=== PATIENT | female | born 1955 | race Caucasian/White ===

== ENCOUNTER 2017-02-22 19:17 | Emergency (ER) | payer OTHER ==
[~2017-02-22] VITALS: Ht 165.1 cm; Wt 57.4 kg
[~2017-02-22 19:17] MED LIST: ALEVE220 M2 PO; CIPRO500 MG PO; FLAGYL500 MG PO; HYDROCODON-ACE1 EAC7 PO; LISINOPRIL10 MG PO; NOHOMEMEDS; PRINIVIL10 MG PO; ZOFRAN ODT4 MG PO
[2017-02-22] MEDS ORDERED: ERYTHROMYCIN O3.5 GM BOTH EYES (23:28)
[2017-02-22] MEDS ORDERED: ROPINIROLE HCL0.5 MG PO (23:42)
[2017-02-23 00:09] VITALS: BP 148/83
== END 2017-02-23 00:11 | disposition home or self-care (01) ==
LOC: EME 19:17
DX: H57.04 Mydriasis (principal); H57.13 Ocular pain, bilateral; R09.89 Other specified symptoms and signs involving the circulatory and respiratory systems; I10 Essential (primary) hypertension; Z87.891 Personal history of nicotine dependence
CPT/HCPCS: 99281; 99284

== ENCOUNTER 2017-08-10 01:34 | Inpatient (IN) | payer OTHER ==
[~2017-08-10] VITALS: Ht 165.1 cm; Wt 57.3 kg
[~2017-08-10 01:34] MED LIST changes: +ERYTHROMYCIN O3.5 GM BOTH EYES; +ROPINIROLE HCL0.5 MG PO
[2017-08-10 02:07] LABS: HEMATOCRIT 43.7 % (36.0-46.0); MCH 29.7 PG (29.0-34.0); MCHC 33.9 G/DL (30.0-36.0); MCV 87.8 FL (83-99); MEAN PLAT.VOLUME 8.8 uM^3 (9.5-12.4); PLATELET COUNT 414 K/uL (156-360); RBC DIS.WIDTH-CV 12.1 % (11.8-14.6); RBC DIS.WIDTH-SD 39.1 % (39-53); RED BLOOD COUNT 4.98 M/uL (3.80-5.20); WHITE BLOOD COUNT 19.3 K/uL (4.1-10.2)
[2017-08-10 02:16] LABS: CHLORIDE 103 mEq/L (99-109); POTASSIUM 3.1 mEq/L (3.7-5.4); SODIUM 142 mEq/L (136-147)
[2017-08-10 02:18] LABS: GLUCOSE 173 mg/dL (70-99)
[2017-08-10 02:20] LABS: ANION GAP 17 MEQ/L (2-14); TOTAL BILIRUBIN 0.4 mg/dL (0.0-1.0)
[2017-08-10 02:22] LABS: ALKALINE PHOSPHATASE 114 IU/L (3-129); GFR ESTIMATE (CALCULATED) > 59 mL/min/
[2017-08-10 02:23] LABS: UREA NITROGEN (BUN) 16 mg/dL (9-23)
[2017-08-10 02:25] LABS: LIPASE 20 U/L (1.0-51.0)
[2017-08-10 04:04] LABS: ADD MIUA? YES; BILIRUBIN NEGATIVE; BLOOD MODERATE; COLOR STRAW ((YELLOW)); GLUCOSE (STRIP) 50; KETONES NEGATIVE; LEUKOCYTES NEGATIVE; NITRITE NEGATIVE; PROTEIN (STRIP) NEGATIVE; SPECIFIC GRAVITY 1.019 (1.000-1.030); UROBILINOGEN 0.2 MG/DL (0.2-1.0)
[2017-08-10 04:09] LABS: BACTERIA NONE SEEN /HPF; EPITHELIAL CELLS NONE SEEN /HPF; MUCUS TRACE /LPF; UCUL ADDED? NO; WHITE BLOOD CELLS 0-5 /HPF (0-5)
[2017-08-10 11:06] LABS: ANION GAP 13 MEQ/L (2-14); CHLORIDE 112 MEQ/L (99-109); GFR ESTIMATE (CALCULATED) > 59 mL/min/; GLUCOSE 175 mg/dL (70-99); POTASSIUM 3.8 MEQ/L (3.7-5.4); SAMPLE HEMOLYSIS CHECK 2; SAMPLE ICTERIC CHECK 0; SAMPLE LIPEMIA CHECK 0; SODIUM 143 MEQ/L (136-147); UREA NITROGEN (BUN) 14 mg/dL (9-23)
[2017-08-10 11:15] VITALS: BP 118/75
[2017-08-10 13:19] LABS: HEMATOCRIT 45.8 % (36.0-46.0); MCH 29.8 PG (29.0-34.0); MCV 90.5 FL (83-99); MEAN PLAT.VOLUME 8.6 uM^3 (9.5-12.4); PLATELET COUNT 388 K/uL (156-360); RBC DIS.WIDTH-CV 12.6 % (11.8-14.6); RED BLOOD COUNT 5.06 M/uL (3.80-5.20); WHITE BLOOD COUNT 5.7 K/uL (4.1-10.2)
[2017-08-10 15:30] VITALS: BP 122/72
[2017-08-10 21:19] VITALS: BP 108/63
[2017-08-10 23:19] VITALS: BP 114/59
[2017-08-11 03:51] VITALS: BP 136/66
[2017-08-11 05:54] LABS: HEMATOCRIT 41.8 % (36.0-46.0); MCH 30.7 PG (29.0-34.0); MCHC 33.3 G/DL (30.0-36.0); MCV 92.3 FL (83-99); MEAN PLAT.VOLUME 9.1 uM^3 (9.5-12.4); PLATELET COUNT 341 K/uL (156-360); RBC DIS.WIDTH-CV 13.3 % (11.8-14.6); RBC DIS.WIDTH-SD 45.7 % (39-53); RED BLOOD COUNT 4.53 M/uL (3.80-5.20); WHITE BLOOD COUNT 22.4 K/uL (4.1-10.2)
[2017-08-11 07:26] LABS: ANION GAP 11 MEQ/L (2-14); CHLORIDE 108 MEQ/L (99-109); GFR ESTIMATE (CALCULATED) > 59 mL/min/; MAGNESIUM 1.9 mg/dl (1.3-2.7); POTASSIUM 4.1 MEQ/L (3.7-5.4); SAMPLE HEMOLYSIS CHECK 0; SAMPLE ICTERIC CHECK 0; SAMPLE LIPEMIA CHECK 0; SODIUM 141 MEQ/L (136-147)
[2017-08-11 07:28] LABS: GLUCOSE 102 mg/dL (70-99); UREA NITROGEN (BUN) 26 mg/dL (9-23)
[2017-08-11 08:04] VITALS: BP 124/60
[2017-08-11 12:00] VITALS: BP 117/62
[2017-08-11 15:54] VITALS: BP 113/58
[2017-08-11] MEDS ORDERED: ELAVIL50 MG PO (16:26)
[2017-08-11] MEDS ORDERED: TUMS500 MG PO (16:26)
[2017-08-11 21:39] VITALS: BP 127/66
[2017-08-12] VITALS (8 sets, daily range): BP systolic 99–157; BP diastolic 56–82
[2017-08-12 06:02] LABS: ANION GAP 7 MEQ/L (2-14); CHLORIDE 107 MEQ/L (99-109); GFR ESTIMATE (CALCULATED) > 59 mL/min/; GLUCOSE 87 mg/dL (70-99); POTASSIUM 3.7 MEQ/L (3.7-5.4); SAMPLE HEMOLYSIS CHECK 0; SAMPLE ICTERIC CHECK 0; SAMPLE LIPEMIA CHECK 0; SODIUM 140 MEQ/L (136-147); UREA NITROGEN (BUN) 17 mg/dL (9-23)
[2017-08-12 06:34] LABS: HEMATOCRIT 30.7 % (36.0-46.0); MCH 29.6 PG (29.0-34.0); MCHC 32.6 G/DL (30.0-36.0); MCV 90.8 FL (83-99); MEAN PLAT.VOLUME 8.7 uM^3 (9.5-12.4); PLATELET COUNT 254 K/uL (156-360); RBC DIS.WIDTH-CV 13.2 % (11.8-14.6); RBC DIS.WIDTH-SD 43.8 % (39-53); WHITE BLOOD COUNT 12.3 K/uL (4.1-10.2)
[2017-08-12 06:40] LABS: RED BLOOD COUNT 3.38 M/uL (3.80-5.20)
[2017-08-13 04:00] VITALS: BP 110/78
[2017-08-13 05:14] LABS: HEMATOCRIT 32.1 % (36.0-46.0); MCH 31.1 PG (29.0-34.0); MCHC 34.6 G/DL (30.0-36.0); MCV 89.9 FL (83-99); MEAN PLAT.VOLUME 8.8 uM^3 (9.5-12.4); PLATELET COUNT 266 K/uL (156-360); RBC DIS.WIDTH-CV 12.8 % (11.8-14.6); RBC DIS.WIDTH-SD 42.2 % (39-53); RED BLOOD COUNT 3.57 M/uL (3.80-5.20)
[2017-08-13 05:58] LABS: ANION GAP 14 MEQ/L (2-14); CHLORIDE 103 MEQ/L (99-109); GFR ESTIMATE (CALCULATED) > 59 mL/min/; GLUCOSE 85 mg/dL (70-99); POTASSIUM 2.9 MEQ/L (3.7-5.4); SAMPLE HEMOLYSIS CHECK 0; SAMPLE ICTERIC CHECK 0; SAMPLE LIPEMIA CHECK 0; SODIUM 140 MEQ/L (136-147); UREA NITROGEN (BUN) 8 mg/dL (9-23)
[2017-08-13 11:02] VITALS: BP 167/83
[2017-08-13 15:04] VITALS: BP 173/88
[2017-08-13 19:50] VITALS: BP 159/77
[2017-08-14 00:05] VITALS: BP 146/72
[2017-08-14 05:42] VITALS: BP 136/72
[2017-08-14 08:15] VITALS: BP 150/83
[2017-08-14 10:44] LABS: HEMATOCRIT 32.3 % (36.0-46.0); MCH 29.5 PG (29.0-34.0); MCHC 33.4 G/DL (30.0-36.0); MCV 88.3 FL (83-99); MEAN PLAT.VOLUME 8.5 uM^3 (9.5-12.4); PLATELET COUNT 281 K/uL (156-360); RBC DIS.WIDTH-CV 12.5 % (11.8-14.6); RBC DIS.WIDTH-SD 40.7 % (39-53); RED BLOOD COUNT 3.66 M/uL (3.80-5.20); WHITE BLOOD COUNT 11.7 K/uL (4.1-10.2)
[2017-08-14 11:06] LABS: ANION GAP 14 MEQ/L (2-14); CHLORIDE 102 MEQ/L (99-109); GFR ESTIMATE (CALCULATED) > 59 mL/min/; GLUCOSE 79 mg/dL (70-99); POTASSIUM 2.8 MEQ/L (3.7-5.4); SAMPLE HEMOLYSIS CHECK 0; SAMPLE ICTERIC CHECK 0; SAMPLE LIPEMIA CHECK 0; SODIUM 138 MEQ/L (136-147); UREA NITROGEN (BUN) 7 mg/dL (9-23)
[2017-08-14 11:15] VITALS: BP 167/88
[2017-08-14 15:30] VITALS: BP 175/81
[2017-08-14 18:55] VITALS: BP 169/83
[2017-08-14 22:02] LABS: ANION GAP 13 MEQ/L (2-14); CHLORIDE 103 MEQ/L (99-109); GFR ESTIMATE (CALCULATED) > 59 mL/min/; POTASSIUM 2.9 MEQ/L (3.7-5.4); SAMPLE HEMOLYSIS CHECK 0; SAMPLE ICTERIC CHECK 0; SAMPLE LIPEMIA CHECK 0; SODIUM 137 MEQ/L (136-147); UREA NITROGEN (BUN) 6 mg/dL (9-23)
[2017-08-14 22:06] LABS: GLUCOSE 115 mg/dL (70-99)
[2017-08-15] VITALS (7 sets, daily range): BP systolic 138–168; BP diastolic 74–93
[2017-08-15 05:14] LABS: MCH 30.1 PG (29.0-34.0); MEAN PLAT.VOLUME 8.5 uM^3 (9.5-12.4); PLATELET COUNT 258 K/uL (156-360); RBC DIS.WIDTH-CV 12.5 % (11.8-14.6); RBC DIS.WIDTH-SD 39.5 % (39-53); RED BLOOD COUNT 3.72 M/uL (3.80-5.20); WHITE BLOOD COUNT 10.8 K/uL (4.1-10.2)
[2017-08-15 05:38] LABS: ANION GAP 11 MEQ/L (2-14); CHLORIDE 102 MEQ/L (99-109); GFR ESTIMATE (CALCULATED) > 59 mL/min/; GLUCOSE 138 mg/dL (70-99); MAGNESIUM 1.9 mg/dl (1.3-2.7); SAMPLE HEMOLYSIS CHECK 0; SAMPLE ICTERIC CHECK 0; SAMPLE LIPEMIA CHECK 0; SODIUM 136 MEQ/L (136-147); UREA NITROGEN (BUN) 5 mg/dL (9-23)
[2017-08-16 04:40] VITALS: BP 131/71
[2017-08-16 07:46] VITALS: BP 156/70
[2017-08-16 09:06] LABS: HEMATOCRIT 32.2 % (36.0-46.0); MCH 29.5 PG (29.0-34.0); MCHC 34.2 G/DL (30.0-36.0); MCV 86.3 FL (83-99); MEAN PLAT.VOLUME 8.6 uM^3 (9.5-12.4); RBC DIS.WIDTH-CV 12.7 % (11.8-14.6); RBC DIS.WIDTH-SD 39.8 % (39-53); RED BLOOD COUNT 3.73 M/uL (3.80-5.20); WHITE BLOOD COUNT 15.1 K/uL (4.1-10.2)
[2017-08-16 09:22] LABS: ANION GAP 13 MEQ/L (2-14); CHLORIDE 104 MEQ/L (99-109); GFR ESTIMATE (CALCULATED) > 59 mL/min/; GLUCOSE 92 mg/dL (70-99); MAGNESIUM 1.7 mg/dl (1.3-2.7); SAMPLE HEMOLYSIS CHECK 0; SAMPLE ICTERIC CHECK 0; SAMPLE LIPEMIA CHECK 0; SODIUM 137 MEQ/L (136-147); UREA NITROGEN (BUN) 8 mg/dL (9-23)
[2017-08-16 09:23] LABS: POTASSIUM 3.8 MEQ/L (3.7-5.4)
[2017-08-16 09:34] LABS: PLATELET COUNT 341 K/uL (156-360)
[2017-08-16 12:00] VITALS: BP 150/71
[2017-08-16 17:46] VITALS: BP 137/65
[2017-08-16 19:45] VITALS: BP 140/72
[2017-08-16 23:00] VITALS: BP 132/80
[2017-08-17] VITALS (7 sets, daily range): BP systolic 101–125; BP diastolic 56–75
[2017-08-17 09:24] LABS: HEMATOCRIT 34.6 % (36.0-46.0); MCH 31.1 PG (29.0-34.0); MCV 88.9 FL (83-99); MEAN PLAT.VOLUME 8.7 uM^3 (9.5-12.4); PLATELET COUNT 406 K/uL (156-360); RBC DIS.WIDTH-CV 13.6 % (11.8-14.6); RBC DIS.WIDTH-SD 44.1 % (39-53); RED BLOOD COUNT 3.89 M/uL (3.80-5.20); WHITE BLOOD COUNT 25.3 K/uL (4.1-10.2)
[2017-08-17 09:56] LABS: ANION GAP 17 MEQ/L (2-14); CHLORIDE 103 MEQ/L (99-109); GFR ESTIMATE (CALCULATED) > 59 mL/min/; GLUCOSE 75 mg/dL (70-99); POTASSIUM 3.8 MEQ/L (3.7-5.4); SAMPLE HEMOLYSIS CHECK 0; SAMPLE ICTERIC CHECK 0; SAMPLE LIPEMIA CHECK 0; SODIUM 136 MEQ/L (136-147); UREA NITROGEN (BUN) 8 mg/dL (9-23)
[2017-08-17 18:30] LABS: HEMATOCRIT 29.4 % (36.0-46.0); MCH 29.9 PG (29.0-34.0); MCHC 33.3 G/DL (30.0-36.0); MCV 89.6 FL (83-99); MEAN PLAT.VOLUME 8.5 uM^3 (9.5-12.4); PLATELET COUNT 388 K/uL (156-360); RBC DIS.WIDTH-CV 13.7 % (11.8-14.6); RED BLOOD COUNT 3.28 M/uL (3.80-5.20); WHITE BLOOD COUNT 28.4 K/uL (4.1-10.2)
[2017-08-17 18:43] LABS: ANION GAP 15 MEQ/L (2-14); CHLORIDE 106 MEQ/L (99-109); GFR ESTIMATE (CALCULATED) > 59 mL/min/; POTASSIUM 3.8 MEQ/L (3.7-5.4); SAMPLE HEMOLYSIS CHECK 0; SAMPLE ICTERIC CHECK 0; SAMPLE LIPEMIA CHECK 0; SODIUM 135 MEQ/L (136-147); UREA NITROGEN (BUN) 10 mg/dL (9-23)
[2017-08-17 18:49] LABS: GLUCOSE 113 mg/dL (70-99)
[2017-08-17 22:35] LABS: ANION GAP 13 MEQ/L (2-14); CHLORIDE 108 MEQ/L (99-109); GFR ESTIMATE (CALCULATED) > 59 mL/min/; GLUCOSE 117 mg/dL (70-99); POTASSIUM 3.9 MEQ/L (3.7-5.4); SAMPLE HEMOLYSIS CHECK 0; SAMPLE ICTERIC CHECK 0; SAMPLE LIPEMIA CHECK 0; SODIUM 136 MEQ/L (136-147); UREA NITROGEN (BUN) 11 mg/dL (9-23)
[2017-08-18 03:35] VITALS: BP 113/56
[2017-08-18 05:50] LABS: HEMATOCRIT 28.5 % (36.0-46.0); MCH 30.7 PG (29.0-34.0); MCV 90.2 FL (83-99); MEAN PLAT.VOLUME 8.7 uM^3 (9.5-12.4); PLATELET COUNT 420 K/uL (156-360); RBC DIS.WIDTH-SD 46.6 % (39-53); RED BLOOD COUNT 3.16 M/uL (3.80-5.20); WHITE BLOOD COUNT 29.5 K/uL (4.1-10.2)
[2017-08-18 06:12] LABS: ANION GAP 14 MEQ/L (2-14); CHLORIDE 106 MEQ/L (99-109); GFR ESTIMATE (CALCULATED) > 59 mL/min/; GLUCOSE 105 mg/dL (70-99); SAMPLE HEMOLYSIS CHECK 0; SAMPLE ICTERIC CHECK 0; SAMPLE LIPEMIA CHECK 0; SODIUM 137 MEQ/L (136-147); UREA NITROGEN (BUN) 14 mg/dL (9-23)
[2017-08-18 08:22] VITALS: BP 136/62
[2017-08-18 11:11] VITALS: BP 136/64
[2017-08-18 15:33] VITALS: BP 139/65
[2017-08-18 19:30] VITALS: BP 125/60
[2017-08-18 23:00] VITALS: BP 120/61
[2017-08-19] VITALS (7 sets, daily range): BP systolic 122–154; BP diastolic 57–90
[2017-08-19 06:29] LABS: ANION GAP 13 MEQ/L (2-14); CHLORIDE 104 MEQ/L (99-109); GFR ESTIMATE (CALCULATED) > 59 mL/min/; POTASSIUM 3.6 MEQ/L (3.7-5.4); SAMPLE HEMOLYSIS CHECK 0; SAMPLE ICTERIC CHECK 0; SAMPLE LIPEMIA CHECK 0; SODIUM 137 MEQ/L (136-147); UREA NITROGEN (BUN) 8 mg/dL (9-23)
[2017-08-19 06:36] LABS: GLUCOSE 69 mg/dL (70-99)
[2017-08-19 06:56] LABS: HEMATOCRIT 25.7 % (36.0-46.0); MCH 30.7 PG (29.0-34.0); MCHC 33.5 G/DL (30.0-36.0); MCV 91.8 FL (83-99); MEAN PLAT.VOLUME 8.9 uM^3 (9.5-12.4); PLATELET COUNT 431 K/uL (156-360); RBC DIS.WIDTH-CV 14.1 % (11.8-14.6); RBC DIS.WIDTH-SD 47.9 % (39-53); WHITE BLOOD COUNT 24.4 K/uL (4.1-10.2)
[2017-08-20 04:16] VITALS: BP 128/64
[2017-08-20 07:49] LABS: ANION GAP 8 MEQ/L (2-14); CHLORIDE 105 MEQ/L (99-109); POTASSIUM 3.4 MEQ/L (3.7-5.4); SAMPLE HEMOLYSIS CHECK 0; SAMPLE ICTERIC CHECK 0; SAMPLE LIPEMIA CHECK 0; SODIUM 138 MEQ/L (136-147)
[2017-08-20 07:57] LABS: GFR ESTIMATE (CALCULATED) > 59 mL/min/; GLUCOSE 163 mg/dL (70-99); UREA NITROGEN (BUN) 2 mg/dL (9-23)
[2017-08-20 08:00] VITALS: BP 130/72
[2017-08-20 09:09] LABS: HEMATOCRIT 23.8 % (36.0-46.0); MCH 29.4 PG (29.0-34.0); MCHC 32.8 G/DL (30.0-36.0); MCV 89.8 FL (83-99); MEAN PLAT.VOLUME 8.7 uM^3 (9.5-12.4); PLATELET COUNT 544 K/uL (156-360); RBC DIS.WIDTH-CV 13.8 % (11.8-14.6); RBC DIS.WIDTH-SD 45.3 % (39-53); RED BLOOD COUNT 2.65 M/uL (3.80-5.20); WHITE BLOOD COUNT 13.8 K/uL (4.1-10.2)
[2017-08-20 11:55] VITALS: BP 130/78
[2017-08-20 17:03] VITALS: BP 135/65
[2017-08-20 20:00] VITALS: BP 131/76
[2017-08-21] VITALS (7 sets, daily range): BP systolic 131–172; BP diastolic 70–83
[2017-08-21 06:12] LABS: GFR ESTIMATE (CALCULATED) > 59 mL/min/
[2017-08-21 07:56] LABS: HEMATOCRIT 23.9 % (36.0-46.0); MCH 30.9 PG (29.0-34.0); MCHC 33.9 G/DL (30.0-36.0); MCV 91.2 FL (83-99); MEAN PLAT.VOLUME 8.8 uM^3 (9.5-12.4); PLATELET COUNT 611 K/uL (156-360); RBC DIS.WIDTH-SD 46.8 % (39-53); RED BLOOD COUNT 2.62 M/uL (3.80-5.20); WHITE BLOOD COUNT 12.7 K/uL (4.1-10.2)
[2017-08-21 08:10] LABS: ANION GAP 7 MEQ/L (2-14); CHLORIDE 107 MEQ/L (99-109); GLUCOSE 120 mg/dL (70-99); POTASSIUM 3.4 MEQ/L (3.7-5.4); SODIUM 138 MEQ/L (136-147); UREA NITROGEN (BUN) 2 mg/dL (9-23)
[2017-08-22] VITALS (7 sets, daily range): BP systolic 129–158; BP diastolic 68–80
[2017-08-22 05:24] LABS: HEMATOCRIT 25.4 % (36.0-46.0); MCH 30.5 PG (29.0-34.0); MCHC 33.9 G/DL (30.0-36.0); MCV 90.1 FL (83-99); MEAN PLAT.VOLUME 8.5 uM^3 (9.5-12.4); NRBC (%) 0.1 /100 WBC (0-0); PLATELET COUNT 734 K/uL (156-360); RBC DIS.WIDTH-CV 13.8 % (11.8-14.6); RBC DIS.WIDTH-SD 45.1 % (39-53); RED BLOOD COUNT 2.82 M/uL (3.80-5.20); WHITE BLOOD COUNT 13.9 K/uL (4.1-10.2)
[2017-08-23 03:45] VITALS: BP 163/92
[2017-08-23 07:53] VITALS: BP 158/83
[2017-08-23] MEDS ORDERED: AUGMENTIN875 MG PO (10:05)
[2017-08-23] MEDS ORDERED: COLACE100 MG PO (10:05)
[2017-08-23] MEDS ORDERED: DOXYCYCLINE HY100 M3 PO (10:05)
[2017-08-23] MEDS ORDERED: NORCO 5/3251 TABLET PO (10:05)
[2017-08-23 11:28] LABS: HEMATOCRIT 29.7 % (36.0-46.0); MCH 29.4 PG (29.0-34.0); MCHC 32.3 G/DL (30.0-36.0); MCV 90.8 FL (83-99); MEAN PLAT.VOLUME 8.1 uM^3 (9.5-12.4); RBC DIS.WIDTH-CV 14.1 % (11.8-14.6); RBC DIS.WIDTH-SD 45.8 % (39-53); RED BLOOD COUNT 3.27 M/uL (3.80-5.20); WHITE BLOOD COUNT 16.7 K/uL (4.1-10.2)
[2017-08-23 11:55] LABS: PLATELET COUNT 982 K/uL (156-360)
[2017-08-23 12:19] VITALS: BP 164/88
[2017-08-23 16:35] VITALS: BP 172/96
[2017-08-23 20:26] VITALS: BP 141/73
[2017-08-23 20:30] LABS: ADD MIUA? YES; BILIRUBIN NEGATIVE; BLOOD SMALL; COLOR STRAW ((YELLOW)); GLUCOSE (STRIP) NEGATIVE; KETONES 5; LEUKOCYTES NEGATIVE; NITRITE NEGATIVE; PROTEIN (STRIP) NEGATIVE; SPECIFIC GRAVITY 1.028 (1.000-1.030); UROBILINOGEN 0.2 MG/DL (0.2-1.0)
[2017-08-23 20:33] LABS: BACTERIA NONE SEEN /HPF; EPITHELIAL CELLS RARE /HPF; MUCUS NONE SEEN /LPF; RED BLOOD CELLS 0-5 /HPF (0-5); UCUL ADDED? NO; WHITE BLOOD CELLS 0-5 /HPF (0-5)
[2017-08-23 23:54] VITALS: BP 158/80
[2017-08-24 05:20] VITALS: BP 162/84; BP 174/82
[2017-08-24 06:44] VITALS: BP 162/86
[2017-08-24 06:48] LABS: HEMATOCRIT 27.5 % (36.0-46.0); MCH 30.4 PG (29.0-34.0); MCHC 33.8 G/DL (30.0-36.0); MCV 89.9 FL (83-99); NRBC (%) 0.5 /100 WBC (0-0); RBC DIS.WIDTH-CV 14.6 % (11.8-14.6); RBC DIS.WIDTH-SD 46.6 % (39-53); RED BLOOD COUNT 3.06 M/uL (3.80-5.20); WHITE BLOOD COUNT 11.9 K/uL (4.1-10.2)
[2017-08-24 06:55] LABS: ANION GAP 10 MEQ/L (2-14); CHLORIDE 103 MEQ/L (99-109); POTASSIUM 3.4 MEQ/L (3.7-5.4); SAMPLE HEMOLYSIS CHECK 0; SAMPLE ICTERIC CHECK 0; SAMPLE LIPEMIA CHECK 0; SODIUM 137 MEQ/L (136-147)
[2017-08-24 07:01] LABS: GFR ESTIMATE (CALCULATED) > 59 mL/min/; GLUCOSE 105 mg/dL (70-99); UREA NITROGEN (BUN) 7 mg/dL (9-23)
[2017-08-24 07:18] LABS: MEAN PLAT.VOLUME 8.3 uM^3 (9.5-12.4); PLAT.SUFFICIENCY INCREASED
[2017-08-24 07:19] LABS: PLATELET COUNT 1167 K/uL (156-360)
[2017-08-24 08:32] VITALS: BP 189/96
[2017-08-24] MEDS ORDERED: ASPIRIN325 MG PO (09:01)
[2017-08-24 10:00] VITALS: BP 160/90
[2017-08-24 12:30] VITALS: BP 148/80
== END 2017-08-24 14:20 | disposition home health service (06) | DRG 329 ==
LOC: EME 01:34 → SDC 06:23 → 3EAST 09:07 → 2SOUTH 09:07 → 4EAST 09:07 → ENRESERV 09:30 → 2SOUTH 09:31 → ENRESERV 09:42 → 4EAST 11:31 → ENRESERV 08-22 09:25 → 3EAST 08-22 10:23 → 4EAST 08-22 10:26 → ENRESERV 08-22 10:27 → 3EAST 08-22 11:46
PROVIDERS: Emergency Medicine; Physician Assistant Surgical; Surgery
DX: K57.20 Diverticulitis of large intestine with perforation and abscess without bleeding (principal); K94.02 Colostomy infection; L03.311 Cellulitis of abdominal wall; L02.211 Cutaneous abscess of abdominal wall; K94.09 Other complications of colostomy; K55.049 Acute infarction of large intestine, extent unspecified; Y83.3 Surgical operation with formation of external stoma as the cause of abnormal reaction of the patient, or of later complication, without mention of misadventure at the time of the procedure; E87.6 Hypokalemia; K21.9 Gastro-esophageal reflux disease without esophagitis; R18.8 Other ascites; I10 Essential (primary) hypertension; G25.81 Restless legs syndrome; G43.909 Migraine, unspecified, not intractable, without status migrainosus; Z87.891 Personal history of nicotine dependence; Z90.710 Acquired absence of both cervix and uterus
CPT/HCPCS: 71020; 74177; 80048; 80048 91; 80053; 80202; 81003; 82565; 83605; 83690; 83735; 84100; 85027; 87040; 87070; 87075; 87076; 87077; 87185; 87186; 87205; 87801; 88305; 90686; 93005; 97530 GO; 97530 GP; 99281; 99285; J0330; J0610; J1170; J1650; J1885; J2250; J2270; J2405; J2543; J2710; J2765; J3010; J3370; J3480; J7030; J7040; J7050; J7120; S0030

== ENCOUNTER → 2017-10-12 | Outpatient (CLI) | payer OTHER ==
[~2017-10-12] VITALS: Ht 165.1 cm; Wt 51.3 kg
[~2017-10-12] MED LIST changes: +ASPIRIN325 MG PO; +AUGMENTIN875 MG PO; +COLACE100 MG PO; +DOXYCYCLINE HY100 M3 PO; +ELAVIL50 MG PO; +FEROSUL325 MG PO; +NORCO 5/3251 TABLET PO; +TUMS500 MG PO; +VITAMIN B-12250 MCG PO
== END | disposition home or self-care (01) ==
LOC: AMB 10-01 13:00
PROC: 0DJD8ZZ Inspection of Lower Intestinal Tract, Via Natural or Artificial Opening Endoscopic (ICD-10-PCS; principal; 2017-10-12)
DX: Z01.818 Encounter for other preprocedural examination (principal); Z87.19 Personal history of other diseases of the digestive system; Z86.010 Personal history of colon polyps; Z93.3 Colostomy status; D64.89 Other specified anemias; E78.5 Hyperlipidemia, unspecified; I10 Essential (primary) hypertension; M85.80 Other specified disorders of bone density and structure, unspecified site; G25.81 Restless legs syndrome; Z86.72 Personal history of thrombophlebitis; Z87.891 Personal history of nicotine dependence
CPT/HCPCS: J2250

== ENCOUNTER 2017-11-22 11:32 | Inpatient (IN) | payer OTHER ==
[~2017-11-22] VITALS: Ht 165.1 cm; Wt 62.9 kg
[~2017-11-22 11:32] MED LIST changes: +VALTREX1000 MG PO
[2017-11-30 07:45] VITALS: BP 108/73
[2017-11-30 16:57] LABS: HEMATOCRIT 38.9 % (36.0-46.0); HEMOGLOBIN 12.7 G/DL (11.9-15.5); MCH 28.3 PG (29.0-34.0); MCHC 32.6 G/DL (30.0-36.0); MCV 86.6 FL (83-99); PLATELET COUNT 334 K/uL (156-360); RBC DIS.WIDTH-CV 14.6 % (11.8-14.6); RBC DIS.WIDTH-SD 46.5 % (39-53); RED BLOOD COUNT 4.49 M/uL (3.80-5.20); WHITE BLOOD COUNT 14.9 K/uL (4.1-10.2)
[2017-11-30 17:02] LABS: CHLORIDE 105 MEQ/L (99-109); SODIUM 133 MEQ/L (136-147)
[2017-11-30 17:08] LABS: CREATININE 0.7 MG/DL (0.6-1.3); GFR ESTIMATE (CALCULATED) > 59 mL/min/; GLUCOSE 146 mg/dL (70-99); UREA NITROGEN (BUN) 14 mg/dL (9-23)
[2017-11-30 17:11] VITALS: BP 145/80
[2017-11-30 19:28] VITALS: BP 130/81
[2017-11-30 23:36] VITALS: BP 96/52
[2017-12-01 05:33] LABS: HEMATOCRIT 32.9 % (36.0-46.0); MCHC 32.5 G/DL (30.0-36.0); MCV 86.1 FL (83-99); PLATELET COUNT 295 K/uL (156-360); RBC DIS.WIDTH-CV 14.8 % (11.8-14.6); RBC DIS.WIDTH-SD 46.8 % (39-53); RED BLOOD COUNT 3.82 M/uL (3.80-5.20); WHITE BLOOD COUNT 15.7 K/uL (4.1-10.2)
[2017-12-01 05:34] LABS: HEMOGLOBIN 10.7 G/DL (11.9-15.5)
[2017-12-01 06:08] LABS: CHLORIDE 104 MEQ/L (99-109); GFR ESTIMATE (CALCULATED) > 59 mL/min/; GLUCOSE 110 mg/dL (70-99); POTASSIUM 4.6 MEQ/L (3.7-5.4); SODIUM 137 MEQ/L (136-147); UREA NITROGEN (BUN) 17 mg/dL (9-23)
[2017-12-01 07:36] VITALS: BP 94/52
[2017-12-01 15:34] VITALS: BP 124/58
[2017-12-01 18:30] LABS: APPEARANCE SL.HAZY ((CLEAR)); BILIRUBIN NEGATIVE; BLOOD LARGE; COLOR YELLOW ((YELLOW)); GLUCOSE (STRIP) NEGATIVE; KETONES 20; LEUKOCYTES NEGATIVE; NITRITE NEGATIVE; PROTEIN (STRIP) NEGATIVE; UROBILINOGEN 0.2 MG/DL (0.2-1.0)
[2017-12-01 18:47] LABS: RED BLOOD CELLS TNTC /HPF (0-5)
[2017-12-01 18:48] LABS: BACTERIA RARE /HPF; EPITHELIAL CELLS RARE /HPF; MUCUS RARE /LPF; UCUL ADDED? YES; WHITE BLOOD CELLS 0-5 /HPF (0-5)
[2017-12-01 20:39] VITALS: BP 120/65
[2017-12-01 23:00] VITALS: BP 144/69
[2017-12-02 04:25] VITALS: BP 141/78
[2017-12-02 06:09] LABS: CHLORIDE 103 MEQ/L (99-109); CREATININE 0.6 MG/DL (0.6-1.3); GFR ESTIMATE (CALCULATED) > 59 mL/min/; SODIUM 137 MEQ/L (136-147); UREA NITROGEN (BUN) 8 mg/dL (9-23)
[2017-12-02 06:11] LABS: GLUCOSE 65 mg/dL (70-99); POTASSIUM 3.5 MEQ/L (3.7-5.4)
[2017-12-02 07:17] LABS: HEMATOCRIT 29.8 % (36.0-46.0); HEMOGLOBIN 9.6 G/DL (11.9-15.5); MCH 27.8 PG (29.0-34.0); MCHC 32.2 G/DL (30.0-36.0); MCV 86.4 FL (83-99); RBC DIS.WIDTH-CV 15.4 % (11.8-14.6); RBC DIS.WIDTH-SD 48.4 % (39-53); RED BLOOD COUNT 3.45 M/uL (3.80-5.20); WHITE BLOOD COUNT 11.6 K/uL (4.1-10.2)
[2017-12-02 07:37] LABS: PLAT.SUFFICIENCY ADEQUATE
[2017-12-02 07:49] LABS: PLATELET COUNT 204 K/uL (156-360)
[2017-12-02 08:18] VITALS: BP 144/74
[2017-12-02 11:02] VITALS: BP 154/79
[2017-12-02 17:48] VITALS: BP 157/84
[2017-12-02 20:20] VITALS: BP 158/86
[2017-12-02 23:50] VITALS: BP 162/81
[2017-12-03 04:23] VITALS: BP 150/84
[2017-12-03 06:03] LABS: HEMATOCRIT 32.3 % (36.0-46.0); HEMOGLOBIN 10.7 G/DL (11.9-15.5); MCH 27.6 PG (29.0-34.0); MCHC 33.1 G/DL (30.0-36.0); MCV 83.5 FL (83-99); RBC DIS.WIDTH-CV 14.9 % (11.8-14.6); RBC DIS.WIDTH-SD 44.9 % (39-53); RED BLOOD COUNT 3.87 M/uL (3.80-5.20); WHITE BLOOD COUNT 9.7 K/uL (4.1-10.2)
[2017-12-03 06:08] LABS: PLATELET COUNT 267 K/uL (156-360)
[2017-12-03 06:33] LABS: CHLORIDE 99 MEQ/L (99-109); CREATININE 0.5 MG/DL (0.6-1.3); GFR ESTIMATE (CALCULATED) > 59 mL/min/; GLUCOSE 150 mg/dL (70-99); POTASSIUM 3.3 MEQ/L (3.7-5.4); SODIUM 136 MEQ/L (136-147); UREA NITROGEN (BUN) 3 mg/dL (9-23)
[2017-12-03 07:44] VITALS: BP 143/81
[2017-12-03 11:01] VITALS: BP 149/79
[2017-12-03 15:07] VITALS: BP 140/76
[2017-12-03 19:20] VITALS: BP 146/94
[2017-12-03 23:07] VITALS: BP 142/81
[2017-12-04] VITALS (8 sets, daily range): BP systolic 135–168; BP diastolic 70–89
[2017-12-04 06:36] LABS: CHLORIDE 103 MEQ/L (99-109); CREATININE 0.5 MG/DL (0.6-1.3); GFR ESTIMATE (CALCULATED) > 59 mL/min/; POTASSIUM 3.5 MEQ/L (3.7-5.4); SODIUM 139 MEQ/L (136-147); UREA NITROGEN (BUN) 4 mg/dL (9-23)
[2017-12-04 06:37] LABS: GLUCOSE 98 mg/dL (70-99)
[2017-12-04 06:56] LABS: HEMATOCRIT 34.3 % (36.0-46.0); HEMOGLOBIN 11.1 G/DL (11.9-15.5); MCH 27.4 PG (29.0-34.0); MCHC 32.4 G/DL (30.0-36.0); MCV 84.7 FL (83-99); PLATELET COUNT 314 K/uL (156-360); RBC DIS.WIDTH-CV 14.7 % (11.8-14.6); RBC DIS.WIDTH-SD 45.6 % (39-53); RED BLOOD COUNT 4.05 M/uL (3.80-5.20); WHITE BLOOD COUNT 7.3 K/uL (4.1-10.2)
[2017-12-05] VITALS (7 sets, daily range): BP systolic 124–163; BP diastolic 71–89
[2017-12-05 08:00] LABS: HEMATOCRIT 35.4 % (36.0-46.0); MCH 27.6 PG (29.0-34.0); MCHC 33.9 G/DL (30.0-36.0); MCV 81.4 FL (83-99); PLATELET COUNT 357 K/uL (156-360); RBC DIS.WIDTH-CV 14.7 % (11.8-14.6); RBC DIS.WIDTH-SD 43.7 % (39-53); RED BLOOD COUNT 4.35 M/uL (3.80-5.20); WHITE BLOOD COUNT 7.3 K/uL (4.1-10.2)
[2017-12-05 08:40] LABS: CHLORIDE 101 MEQ/L (99-109); CREATININE 0.4 MG/DL (0.6-1.3); GFR ESTIMATE (CALCULATED) > 59 mL/min/; GLUCOSE 92 mg/dL (70-99); POTASSIUM 3.8 MEQ/L (3.7-5.4); SODIUM 137 MEQ/L (136-147); UREA NITROGEN (BUN) 7 mg/dL (9-23)
[2017-12-06 00:47] VITALS: BP 138/82
[2017-12-06 04:36] VITALS: BP 166/87
[2017-12-06 07:31] VITALS: BP 140/70
[2017-12-06] MEDS ORDERED: NORCO 10/3251 TABLET PO (10:15)
[2017-12-06] MEDS ORDERED: METOPROLOL TART25 MG PO (10:15)
[2017-12-06] MEDS ORDERED: COLACE100 MG PO (10:15)
== END 2017-12-06 13:21 | disposition home health service (06) | DRG 336 ==
LOC: 2SOUTH 11:32 → ENRESERV 11-29 22:30 → 2SOUTH 11-30 07:08 → 3EAST 11-30 07:08 → 2SOUTH 11-30 09:01 → ENRESERV 11-30 15:43 → 3EAST 11-30 16:36 → 2SOUTH 12-04 08:53 → 3EAST 12-06 13:21
PROVIDERS: Surgery
DX: Z43.3 Encounter for attention to colostomy (principal); I47.1 Supraventricular tachycardia; K66.0 Peritoneal adhesions (postprocedural) (postinfection); I10 Essential (primary) hypertension; L91.0 Hypertrophic scar; T81.4XXA Infection following a procedure, initial encounter; L03.319 Cellulitis of trunk, unspecified; Y83.8 Other surgical procedures as the cause of abnormal reaction of the patient, or of later complication, without mention of misadventure at the time of the procedure; Y92.239 Unspecified place in hospital as the place of occurrence of the external cause; E78.5 Hyperlipidemia, unspecified; G25.81 Restless legs syndrome; R79.89 Other specified abnormal findings of blood chemistry; D64.89 Other specified anemias; M85.80 Other specified disorders of bone density and structure, unspecified site; Z87.891 Personal history of nicotine dependence
CPT/HCPCS: 36415; 71045; 80048; 81003; 85027; 86850; 86900; 86901; 87040; 87086; 88307; 93005; C1758; J0330; J1100; J1170; J1650; J2250; J2270; J2405; J2765; J3010; J7030; J7120; S0074

== ENCOUNTER 2018-06-24 23:47 | Inpatient (IN) | payer OTHER ==
[~2018-06-24] VITALS: Ht 165.1 cm; Wt 57.6 kg
[~2018-06-24 23:47] MED LIST changes: +METOPROLOL TART25 MG PO; +NORCO 10/3251 TABLET PO
[2018-06-25 00:36] LABS: BASOPHIL (%) 0.4 % (0-1); BASOPHIL COUNT 0.1 K/uL (0-0.1); EOSINOPHIL (%) 0.8 % (0-5); EOSINOPHIL COUNT 0.2 K/uL (0-0.3); HEMATOCRIT 38.6 % (36.0-46.0); HEMOGLOBIN 13.6 G/DL (11.9-15.5); IMMATURE GRANULOCYTE (%) 0.5 % (0.0-0.7); LYMPHOCYTE (%) 18.5 % (15-42); LYMPHOCYTE COUNT 3.3 K/uL (1.0-2.8); MCH 30.6 PG (29.0-34.0); MCHC 35.2 G/DL (30.0-36.0); MCV 86.9 FL (83-99); MONOCYTE (%) 5.2 % (3-12); MONOCYTE COUNT 0.9 K/uL (0-0.8); NEUTROPHIL (%) 74.6 % (45-76); NEUTROPHIL COUNT 13.3 K/uL (1.8-6.4); PLATELET COUNT 284 K/uL (156-360); RBC DIS.WIDTH-CV 11.9 % (11.8-14.6); RBC DIS.WIDTH-SD 38.1 % (39-53); RED BLOOD COUNT 4.44 M/uL (3.80-5.20); WHITE BLOOD COUNT 17.8 K/uL (4.1-10.2)
[2018-06-25 00:47] LABS: ALBUMIN 4.9 g/dL (3.2-4.8); CHLORIDE 104 mEq/L (99-109); POTASSIUM 3.2 mEq/L (3.7-5.4); SODIUM 144 mEq/L (136-147)
[2018-06-25 00:50] LABS: GLUCOSE 144 mg/dL (70-99); TOTAL PROTEIN 8.1 g/dL (6.4-8.3)
[2018-06-25 00:51] LABS: TOTAL BILIRUBIN 0.6 mg/dL (0.0-1.0)
[2018-06-25 00:53] LABS: ALKALINE PHOSPHATASE 107 IU/L (3-129); CREATININE 0.9 mg/dL (0.6-1.3); GFR ESTIMATE (CALCULATED) > 59 mL/min/
[2018-06-25 00:54] LABS: UREA NITROGEN (BUN) 17 mg/dL (9-23)
[2018-06-25 00:55] LABS: AST (GOT) 28 IU/L (2-34)
[2018-06-25 00:56] LABS: ALT (GPT) 22 IU/L (3-49)
[2018-06-25 00:57] LABS: LIPASE 17 U/L (1.0-51.0)
[2018-06-25 02:09] LABS: APPEARANCE SL.HAZY ((CLEAR)); BILIRUBIN NEGATIVE; BLOOD SMALL; COLOR STRAW ((YELLOW)); GLUCOSE (STRIP) NEGATIVE; KETONES NEGATIVE; LEUKOCYTES NEGATIVE; NITRITE NEGATIVE; PROTEIN (STRIP) NEGATIVE; SPECIFIC GRAVITY 1.013 (1.000-1.030); UROBILINOGEN 0.2 MG/DL (0.2-1.0)
[2018-06-25 02:19] LABS: BACTERIA NONE SEEN /HPF; EPITHELIAL CELLS NONE SEEN /HPF; MUCUS NONE SEEN /LPF; RED BLOOD CELLS 0-5 /HPF (0-5); UCUL ADDED? NO; WHITE BLOOD CELLS 0-5 /HPF (0-5)
[2018-06-25 04:49] VITALS: BP 180/95
[2018-06-25 08:19] VITALS: BP 156/87
[2018-06-25] MEDS ORDERED: CLARITIN,ALAVAR10 MG PO (09:42)
[2018-06-25] MEDS ORDERED: TYLENOL EXTRA500 MG PO (09:43)
[2018-06-25] MEDS ORDERED: B-121000 MC2 PO (09:43)
[2018-06-25] MEDS ORDERED: LIPITOR10 MG PO (09:43)
[2018-06-25] MEDS ORDERED: ZOVIRAX5 GM TP (09:44)
[2018-06-25] MEDS ORDERED: VISINE ADVANCED15 ML BOTH EYES (09:44)
[2018-06-25 11:39] VITALS: BP 141/82
[2018-06-25 16:03] VITALS: BP 177/80
[2018-06-25 19:43] VITALS: BP 153/77
[2018-06-25 23:30] VITALS: BP 134/75
[2018-06-26 04:29] VITALS: BP 136/76
[2018-06-26 06:20] LABS: HEMATOCRIT 41.3 % (36.0-46.0); HEMOGLOBIN 13.8 G/DL (11.9-15.5); MCHC 33.4 G/DL (30.0-36.0); MCV 89.8 FL (83-99); PLATELET COUNT 319 K/uL (156-360); RBC DIS.WIDTH-CV 12.4 % (11.8-14.6); RBC DIS.WIDTH-SD 40.9 % (39-53); WHITE BLOOD COUNT 17.1 K/uL (4.1-10.2)
[2018-06-26 06:42] LABS: CHLORIDE 103 MEQ/L (99-109); CREATININE 0.7 MG/DL (0.6-1.3); GFR ESTIMATE (CALCULATED) > 59 mL/min/; GLUCOSE 119 mg/dL (70-99); SODIUM 139 MEQ/L (136-147); UREA NITROGEN (BUN) 12 mg/dL (9-23)
[2018-06-26 06:47] LABS: POTASSIUM 4.2 MEQ/L (3.7-5.4)
[2018-06-26 06:55] VITALS: BP 176/79
[2018-06-26 12:38] VITALS: BP 135/81
[2018-06-26 16:00] VITALS: BP 168/82
[2018-06-26 19:13] VITALS: BP 158/70
[2018-06-27 00:03] VITALS: BP 162/74
[2018-06-27 03:55] VITALS: BP 118/63
[2018-06-27 06:31] LABS: BASOPHIL (%) 0.4 % (0-1); EOSINOPHIL (%) 1.2 % (0-5); EOSINOPHIL COUNT 0.1 K/uL (0-0.3); HEMATOCRIT 35.8 % (36.0-46.0); HEMOGLOBIN 11.9 G/DL (11.9-15.5); IMMATURE GRANULOCYTE (%) 0.1 % (0.0-0.7); LYMPHOCYTE (%) 33.6 % (15-42); LYMPHOCYTE COUNT 3.3 K/uL (1.0-2.8); MCHC 33.2 G/DL (30.0-36.0); MCV 90.2 FL (83-99); MONOCYTE (%) 8.9 % (3-12); MONOCYTE COUNT 0.9 K/uL (0-0.8); NEUTROPHIL (%) 55.8 % (45-76); NEUTROPHIL COUNT 5.4 K/uL (1.8-6.4); PLATELET COUNT 273 K/uL (156-360); RBC DIS.WIDTH-SD 39.9 % (39-53); RED BLOOD COUNT 3.97 M/uL (3.80-5.20); WHITE BLOOD COUNT 9.7 K/uL (4.1-10.2)
[2018-06-27 06:55] LABS: CHLORIDE 105 MEQ/L (99-109); CREATININE 0.7 MG/DL (0.6-1.3); GFR ESTIMATE (CALCULATED) > 59 mL/min/; GLUCOSE 96 mg/dL (70-99); POTASSIUM 3.9 MEQ/L (3.7-5.4); SODIUM 140 MEQ/L (136-147); UREA NITROGEN (BUN) 10 mg/dL (9-23)
[2018-06-27 07:38] VITALS: BP 132/74
[2018-06-27 12:15] VITALS: BP 130/76
== END 2018-06-27 14:25 | disposition home or self-care (01) | DRG 390 ==
LOC: EME 23:47 → EDOF 06-25 03:00 → 2EAST 06-25 03:00 → ENRESERV 06-25 03:15 → 2EAST 06-25 04:31
PROVIDERS: Emergency Medicine; Physician Assistant Medical; Physician Assistant Surgical
DX: K56.609 Unspecified intestinal obstruction, unspecified as to partial versus complete obstruction (principal); D72.829 Elevated white blood cell count, unspecified; G43.909 Migraine, unspecified, not intractable, without status migrainosus; G25.81 Restless legs syndrome; Z87.891 Personal history of nicotine dependence
CPT/HCPCS: 71045; 74019; 74177; 80048; 80053; 81003; 83690; 85025; 85027; 99281; 99285; J2405; J3010; J3030; J7030; J7120